=== PATIENT | female | born 1995 | race Caucasian/White ===

== ENCOUNTER 2017-09-26 22:45 | Emergency (ER) | payer OTHER ==
[~2017-09-26] VITALS: Ht 167.6 cm; Wt 78.2 kg
[2017-09-26] MEDS ORDERED: normal saline 1000ML IV soln IVB ONE (22:55)
[2017-09-26] MEDS ORDERED: AMOX500C2 PO (23:06)
[2017-09-26 23:39] VITALS: BP 134/88
== END 2017-09-26 23:40 | disposition home or self-care (01) ==
LOC: ER 22:47
DX: J02.9 Acute pharyngitis, unspecified (principal)
CPT/HCPCS: 87081; 87880; 99284